=== PATIENT | female | born 1960 | race Caucasian/White ===

== ENCOUNTER 2017-01-06 06:56 | Observation (INO) | payer OTHER ==
[2017-01-06] MEDS ORDERED: NS 1,000 ML IV ONE (06:57)
--- NOTE | 2017-01-06 07:39 | CPEKG ---
Heart Rate: 69 RR Interval: 870 P-R Interval: 156 QRSD Interval: 82 QT Interval: 404 QTC Interval: 433 P [place]: 62 QRS [place]: 16 T Wave [place]: 46 EKG Severity - OTHERWISE NORMAL ECG - EKG Impression: SINUS RHYTHM EKG Impression: LOW VOLTAGE IN FRONTAL LEADS Electronically Signed By: Mervin Hamm 06-Jan-2017 09:09:37
[2017-01-06] MEDS ORDERED: SEVOFLURANE 250 ML BOTTLE IH ONE (07:44)
[2017-01-06] MEDS ORDERED: BUPIVACAINE 0.5% 30 ML SDV ONE (08:04)
[2017-01-06] MEDS ORDERED: HEPARIN 10,000 UNIT/10 ML MDV ONE (08:04)
[2017-01-06] MEDS ORDERED: LIDOCAINE 1% 300 MG/30 ML SDV ONE (08:04)
[2017-01-06] MEDS ORDERED: ISOPROTERENOL HCL/D5W 0.2 MG/50 ML BAG IV ONE (08:05)
[2017-01-06 08:10] LABS: % IMMATURE GRANULYOCYTES 0.3 % (0.0-1.1); ABSOLUTE IMMATURE GRANULOCYTES 0.02 10^3/uL (0.00-0.10); ADD DIFF? NO; ADD MORPH? NO; ADD SCAN? NO; ATYPICAL LYMPHOCYTE FLAG 0 (0-99); FRAGMENT RBC FLAG 0 (0-99); HEMATOCRIT 41.2 % (38.0-47.0); HEMOGLOBIN 13.7 g/dL (12.6-16.3); LEFT SHIFT FLG 0 (0-99); LIPEMIA HEMOLYSIS FLAG 80 (0-99); MEAN CELL HEMOGLOBIN 30.4 pg (27.9-34.1); MEAN CELL HEMOGLOBIN CONCENTR. 33.3 g/dL (32.4-36.7); MEAN CELL VOLUME 91.4 fL (81.5-99.8); MEAN PLATELET VOLUME 10.4 fL (8.7-11.7); PLATELET CLUMPS FLAG 10 (0-99); PLATELET COUNT 239 10^3/uL (150-400); RED BLOOD CELL COUNT 4.51 10^6/uL (4.18-5.33); RED CELL DISTRIBUTION WIDTH 13.2 % (11.5-15.2)
[2017-01-06 08:19] LABS: INR 0.96 (0.83-1.16); PROTIME(PATIENT) 12.7 SEC (12.0-15.0)
[2017-01-06 08:20] LABS: APTT 28.2 SEC (23.0-38.0)
[2017-01-06] MEDS ORDERED: MIDAZOLAM 2 MG/2 ML VIAL IVP ONE (08:20)
--- NOTE | 2017-01-06 08:20 | PDANEPAE ---
ANE History of Present Illness 56 year old female presents for SVT ablation. ANE Past Medical History - Cardiovascular History Hx Hypertension: No Hx Arrhythmias: Yes Hx Chest Pain: No Hx Coronary Artery / Peripheral Vascular Disease: No Hx CHF / Valvular Disease: No Hx Palpitations: Yes Cardiovascular History Comment: History of SVT and palpitations - Pulmonary History Hx COPD: No Hx Asthma/Reactive Airway Disease: No Hx Recent Upper Respiratory Infection: No Hx Oxygen in Use at Home: No Hx Sleep Apnea: No - Neurologic History Hx Cerebrovascular Accident: No Hx Seizures: No Hx Dementia: No - Endocrine History Hx Diabetes: No Hypothyroid: No Hyperthyroid: No Obesity: no - Renal History Hx Renal Disorders: No - Liver History Hx Hepatic Disorders: No - Neurological & Psychiatric Hx Hx Neurological and Psychiatric Disorders: No - Cancer History Hx Cancer: No - GI History GERD: mild - Chronic Pain History Chronic Pain: No ANE Review of Systems Review of systems is: negative Review of Systems: - Exercise capacity Exercise capacity: >=4 METS - Systems Cardiac: Reports: palpitations ANE Patient History - Allergies Allergies/Adverse Reactions: No Known Allergies Allergy (Unverified 01/06/17 06:25) - Home Medications Home medications: home medication list seen and reviewed Home Medications: Diltiazem HCl [Cartia Xt] 120 mg PO DAILY 01/06/17 [Last Taken 01/01/17] Estrogel 1.25g Gel Pump 1 bhavana TP Q3D 01/06/17 [Last Taken 01/04/17] Polyethylene Glycol 3350 [Miralax 17 gm (*)] 17 gm PO DAILY PRN 01/06/17 [Last Taken 01/05/17 21:00] Ranitidine HCl [Zantac] 300 mg PO HS 01/06/17 [Last Taken 01/05/17] - NPO status NPO Status: no food or drink >8 hours - Anes Hx Hx Anesthesia Complications (with details): No prior general anesthetics. Patient has had conscious sedation for colonoscopy and epidural for vaginal delivery. - Smoking Hx Smoking Status: Never smoked Marijuana use: Yes - Alcohol Use Alcohol Use: Occasionally - Family Anes Hx Family Anes Hx: neg - N/A ANE Labs/Vital Signs - Labs Result Diagrams: 01/06/17 08:00 01/06/17 08:00 - Vital Signs Vital Signs: reviewed preoperatively; see RN documention for details Height: 165 cm Weight: 68 kg ANE Physical Exam - Airway Neck exam: FROM Mallampati Score: Class 2 Mouth exam: normal dental/mouth exam - Pulmonary Pulmonary: no respiratory distress - Cardiovascular Cardiovascular: regular rate and rhythym - ASA Status ASA Status: II ANE Anesthesia Plan Anesthesia Plan: general endotracheal anesthesia Total IV Anesthesia: No
[2017-01-06] MEDS ORDERED: PROPOFOL 200 MG/20 ML VIAL ONE (08:26)
[2017-01-06] MEDS ORDERED: fentaNYL 100 MCG/2 ML INJ ONE (08:26)
[2017-01-06 08:27] LABS: ANION GAP 13 mEq/L (8-16); CALCIUM 9.3 mg/dL (8.5-10.4); CARBON DIOXIDE 23 mEq/l (22-31); CHLORIDE 105 mEq/L (97-110); CREATININE 0.7 mg/dL (0.6-1.0); GLOMERULAR FILTRATION RATE > 60; GLUCOSE 98 mg/dL (70-100); MAGNESIUM 1.8 mg/dL (1.6-2.3); POTASSIUM 4.2 mEq/L (3.5-5.2); SODIUM 141 mEq/L (134-144)
[2017-01-06] MEDS ORDERED: ROCURONIUM 50 MG/5 ML VIAL ONE ×2 (08:27→09:40)
[2017-01-06] MEDS ORDERED: DEXAMETHASONE 4 MG/ML VIAL ONE (08:33)
[2017-01-06] MEDS ORDERED: PHENYLEPHRINE HCL 100 MCG/ML SYR ONE (08:33)
[2017-01-06] MEDS ORDERED: ONDANSETRON 4 MG/2 ML VIAL ONE (08:33)
--- NOTE | 2017-01-06 09:08 | PDHPUP ---
History & Physical Update H&P update statement: This history and physical update is based on an assessment of the patient which was completed after admission or registration (within 24 hours), but prior to the surgery/procedure. H&P update: H&P reviewed & patient examined, no change in patient's condition since H&P completed
[2017-01-06] MEDS ORDERED: SUGAMMADEX SODIUM 200 MG/2 ML VIAL IVP ONE (10:05)
[2017-01-06] MEDS ORDERED: ONDANSETRON 4 MG/2 ML VIAL IVP PRN (10:06)
[2017-01-06] MEDS ORDERED: fentaNYL 100 MCG/2 ML INJ IVP PRN (10:06)
[2017-01-06] MEDS ORDERED: NALOXONE HCL 0.4 MG/ML INJ IVP PRN (10:06)
[2017-01-06] MEDS ORDERED: LR 500 ML IV PRN (10:06)
[2017-01-06] MEDS ORDERED: ACETAMINOPHEN 325 MG TAB PO PRN (10:37)
--- NOTE | 2017-01-06 10:37 | EPPROC ---
Electrophysiology Procedure Note: PROCEDURES PERFORMED: 32266-43 EP evaluation with RA/RV/LA pace/record, with arrhythmia induction 00239-11 EP evaluation with RA/RV pace record, insert/reposition catheter, with arrhythmia induction 28598 Intracardiac catheter ablation, SVT arrhythmogenic focus 61688 3D mapping Fluoroscopy INDICATION: Recurrent SVT PROCEDURE: Catheters & Anesthesia: The patient arrived in the Electrophysiology Laboratory in the fasting state. The right clavicular region, right groin, and left groin area were prepped and draped in the usual sterile manner. Anesthesiologist Dr. Mau Bryan administered general anesthesia. Appropriate non-invasive blood pressure, pulse oximetry and end-tidal CO2 monitoring was established. All catheters were placed percutaneously using the modified Seldinger technique , and advanced into position under fluoroscopic guidance. One #6 Greek hexapolar non-deflectable electrode catheter was inserted into the right atrial appendage via the left femoral vein (2mm spacing; except the proximal ring which was 25cm from the tip used for unipolar recordings). One #7 Greek deflectable octapolar electrode catheter was advanced to the His-bundle position via the left femoral vein (2mm spacing). One #7 Greek deflectable quadrapolar catheter was advanced to the anteroseptal right ventricle via the right femoral vein. One #7 Greek deflectable catheter with 10 pairs of electrodes was placed via the right femoral vein into the coronary sinus. Heparin was given to keep ACT > 200 s. Programmed stimulation was performed from the right atrium, right ventricle and coronary sinus (left atrium). Parahisian pacing demonstrated constant H-A interval with changing V-A intervals and stimulus-A intervals during capture and loss of capture of proximal RBB proving retrograde conduction over AV node. AVNRT was induced easily during infusion of isoproterenol 2 mcg/min. Ventricular extrastimuli delivered during tachycardia without altering antegrade His bundle activation did not advance next atrial potential, indicating that the tachycardia was not utilizing an accessory pathway for retrograde conduction. VA interval was -10 ms. Post entrainment of the tachycardia from the ventricle, there was VAHV response. Mapping of the right atrium and coronary sinus during AVNRT identified earliest atrial activation above the tendon of Simone at a level slightly posterior to the level of the His bundle, consistent with retrograde conduction over the fast AV avelino pathway. A #8 Greek deflectable quadrapolar electrode catheter (2mm-5mm-2mm spacing) with 4 mm tip electrode and sensor for the 3D mapping Carto system was advanced to the right atrium. 3 D mapping of the inter-atrial septum and coronary sinus was performed and location of the AV node was marked. A SL2 sheath was used. RF applications were delivered to the region between the tricuspid annulus and the coronary sinus ostium, at the level of the upper edge of the coronary sinus ostium. Radiofrequency applications were also delivered along the roof of the proximal coronary sinus. Junctional rhythm occurred during all of the RF applications. Programmed stimulation was continued post ablation at baseline and during graded doses of isoproterenol upto 4mcg/min. Sustained AVNRT was not inducible. There were single echo beats. The catheters were removed. The long sheath was changed to a short 9 Fr sheath. The patient was transferred to the cardiovascular holding area in stable condition. Vascular access sheaths were removed in the holding area. There were no apparent complications. Results: A. Spontaneous Intervals: Pre ablation SCL 720 ms AH 65 ms HV 40 ms Post ablation SCL 680 ms AH 65 ms HV 40 ms B. Antegrade AV avelino function (decremental pacing) Pre ablation FPERP 270 ms then SVT Post ablation FPERP 290 ms WBB CL 280 ms C. Retrograde AV avelino function (decremental pacing) Pre ablation FPERP 240 ms WBB CL 230 ms D. Arrhythmias: Sustained slow/fast AVNRT Cycle length 280 ms, AH interval 240 ms, MARTIN interval 40 ms VA interval -10 ms CONCLUSIONS 1. AV avelino reentrant tachycardia using the slow AV avelino pathway for antegrade conduction and the fast AV avelino pathway for retrograde conduction. ( Slow/fast AVNRT). 2. Successful ablation of the slow AV avelino pathway with elimination of 1:1 antegrade conduction over the slow AV avelino pathway, all retrograde conduction over the slow AV avelino pathway and the inducibility of AVNRT. 3. No complications. Patient Problems: Problems Problem Status Onset Supraventricular tachycardia Acute
[2017-01-06] MEDS ORDERED: POLYETHYLENE GLYCOL 3350 17 GM PKT PO PRN (10:39)
[2017-01-06] MEDS ORDERED: ATROPINE SULFATE 1 MG/10 ML SYR ONE (10:55)
--- NOTE | 2017-01-06 12:29 | CPEKG ---
Heart Rate: 68 RR Interval: 882 P-R Interval: 156 QRSD Interval: 76 QT Interval: 400 QTC Interval: 426 P [place]: 66 QRS [place]: 23 T Wave [place]: 54 EKG Severity - OTHERWISE NORMAL ECG - EKG Impression: SINUS RHYTHM EKG Impression: LOW VOLTAGE IN FRONTAL LEADS Electronically Signed By: Mervin Hamm 06-Jan-2017 13:53:16
--- NOTE | 2017-01-06 14:35 | POSTANESTH ---
Post Anesthetic Evaluation Cardiovascular Status: Similar to Pre-Op Cond Respiratory Status: Normal, Stable, Similar to Pre-op Cond. Level of Consciousness/Mental Status: Can Participate in Eval Pain Control: Adequate, Prn Tx Ordered Nausea/Vomiting Control: Adequate, Prn Tx Ordered Complications Possibly Related to Anesthesia: None Noted
[2017-01-06] MEDS ORDERED: Ranitidine Hcl [Zantac] 300 MG PO SCH (21:00)
[2017-01-06] MEDS ORDERED: FAMOTIDINE 20 MG TAB PO SCH (21:00)
[2017-01-07 05:36] LABS: % IMMATURE GRANULYOCYTES 0.3 % (0.0-1.1); ABSOLUTE IMMATURE GRANULOCYTES 0.04 10^3/uL (0.00-0.10); ADD DIFF? NO; ADD MORPH? NO; ADD SCAN? NO; ATYPICAL LYMPHOCYTE FLAG 0 (0-99); FRAGMENT RBC FLAG 0 (0-99); HEMATOCRIT 38.2 % (38.0-47.0); HEMOGLOBIN 12.5 g/dL (12.6-16.3); LEFT SHIFT FLG 0 (0-99); LIPEMIA HEMOLYSIS FLAG 80 (0-99); MEAN CELL HEMOGLOBIN 30.3 pg (27.9-34.1); MEAN CELL HEMOGLOBIN CONCENTR. 32.7 g/dL (32.4-36.7); MEAN CELL VOLUME 92.7 fL (81.5-99.8); MEAN PLATELET VOLUME 10.8 fL (8.7-11.7); PLATELET CLUMPS FLAG 10 (0-99); PLATELET COUNT 260 10^3/uL (150-400); RED BLOOD CELL COUNT 4.12 10^6/uL (4.18-5.33); RED CELL DISTRIBUTION WIDTH 13.3 % (11.5-15.2)
[2017-01-07 05:44] LABS: ANION GAP 8 mEq/L (8-16); CALCIUM 9.1 mg/dL (8.5-10.4); CARBON DIOXIDE 26 mEq/l (22-31); CHLORIDE 104 mEq/L (97-110); CREATININE 0.8 mg/dL (0.6-1.0); GLOMERULAR FILTRATION RATE > 60; GLUCOSE 97 mg/dL (70-100); POTASSIUM 4.6 mEq/L (3.5-5.2); SODIUM 138 mEq/L (134-144)
[2017-01-07 05:50] LABS: TROPONIN I 0.103 ng/mL (0.000-0.034)
--- NOTE | 2017-01-07 08:29 | CPEKG ---
Heart Rate: 77 RR Interval: 779 P-R Interval: 152 QRSD Interval: 80 QT Interval: 384 QTC Interval: 435 P [place]: 57 QRS [place]: 15 T Wave [place]: 40 EKG Severity - NORMAL ECG - EKG Impression: SINUS RHYTHM Electronically Signed By: Bernie Perdomo 07-Jan-2017 09:59:51
[2017-01-07 08:39] VITALS: BP 110/68; PULSE 67; RESP 15; TEMP 98.3; O2SAT 97
[2017-01-07] MEDS ORDERED: ASPIRIN 81 MG CHEWABLE TAB PO SCH (09:00)
--- NOTE | 2017-01-07 09:23 | ECHO ---
[email or web address] [address] [address] Main: [phone] Fax: Transthoracic Echocardiogram Name: ROBBIN TORRES MR#: [id number] Study Date: 01/07/2017 Study Time: 07:34 AM Date of : 1960 Age: 56 year(s) Height: 165.1 cm (65 in.) Weight: 67.59 kg (149 lb.) BSA: 1.75 m2 Gender: Female Examination: Echo Indication: F/U post EP study Image Quality: Contrast: Requested by: Mervin Hamm Heart Rate: Rhythm: BP: 113 mmHg/73 mmHg Procedure Staff Ordering Physician: RHEA It Risk Advisor: Sherine Norris Reading Physician: Troy Mckinney Conclusions: ? Normal size left ventricle. ? The EF is 65-70%. ? Normal size right ventricle. ? The left atrium is normal in size. ? The right atrium is normal in size. ? The mitral valve is normal in appearance. ? Trivial mitral valve regurgitation. ? The aortic valve is tri-leaflet and functions normally. ? The tricuspid valve appears normal. ? No pericardial effusion. ? There is pericardial fat. Measurements: Chambers Valvular Assessment AV/MV Valvular Assessment TV/PV Normal Normal Normal Name Value Range Name Value Range Name Value Range Ao Mandie (MM): 2.9 cm (2.2 cm-3.7 AV meanP mmHg ( - ) cm) MV E Vmax: 0.99 cm/s ( - ) IVSd (2D): 0.5 cm (0.6 cm-1.1 MV A Vmax: 0.68 cm/s ( - ) cm) MV E/A: 1.46 ( - ) LVDd (2D): 4.3 cm (3.9 cm-5.3 cm) LVDs (2D): 2.6 cm (2.1 cm-4 cm) LVPWd (2D): 0.6 cm ( - ) LVEF (2D): 70 (>=54 %) Continued Measurements: Chambers Valvular Assessment AV/MV Patient: ROBBIN TORRES Study Date: 01/07/2017 Page 1 of 2 07:34 AM Name Value Name Value LA Area: 14.1 cm? MV E/E' Septal: 13.20 LA Volume: 37 ml LA Volume Index: 21.1 ml/m? Findings: Left Ventricle: Normal size left ventricle. The EF is 65-70%. Right Ventricle: Normal size right ventricle. Left Atrium: The left atrium is normal in size. Right Atrium: The right atrium is normal in size. Mitral Valve: The mitral valve is normal in appearance. Trivial mitral valve regurgitation. Aortic Valve: The aortic valve is tri-leaflet and functions normally. Tricuspid Valve: The tricuspid valve appears normal. Mild tricuspid regurgitation is present. Pulmonic Valve: The pulmonic valve is normal in appearance and function. Trivial pulmonic valve regurgitation. Great Vessels: Pericardium: No pericardial effusion. There is pericardial fat. (No Signature Object) Patient: ROBBIN TORRES Study Date: 01/07/2017 Page 2 of 2 07:34 AM D:_[id number]
--- NOTE | 2017-01-07 14:03 | GDS ---
[f rep st] DISCHARGE SUMMARY DISCHARGE DIAGNOSES: Supraventricular tachycardia, status post AVNRT ablation. BRIEF HISTORY: Dr. Colorado referred the patient to Dr. Hamm for SVT treatment. She has a 30-year histor y of palpitations. These have been increasing recently. SVT at a rate of 230 beats per minute was d ocumented in the ER in June. She was taking Cardizem, however, experiencing side effects of this me dication and opted for an EP study and ablation, if indicated. HOSPITAL COURSE: Dr. Hamm performed ablation of the slow AV avelino pathway. There was no inducible AV NRT post ablation. Guerda did well overnight. She denies any chest pain, shortness of breath, pain in her groin or her legs. TESTING DONE: EKG demonstrates sinus rhythm without ST or T-wave changes. Echocardiogram demonstrat es normal LV function with an ejection fraction of 65% to 70%. There is no pericardial effusion. LABORATORY DATA: WBC is 13.2, hemoglobin 12.5, hematocrit 38.2, platelets 260,000. Sodium is 138, p otassium 4.6, chloride 104, bicarb 26, BUN 14. Creatinine is 0.8. Glucose is 97. CK 35. CK-MB is 0.90. Troponin is 0.103, which is elevated and to be expected post ablation. PHYSICAL EXAM: VITAL SIGNS: Blood pressure is 113/73. Pulse is 77, respirations 19, temperature 36 .6. O2 saturation on room air is 95%. GENERAL: She is alert and oriented, sitting up in bed, in no acute distress. CARDIAC: Regular rate and rhythm, without a murmur, rub, or gallop. LUNGS: Clear to auscultation. ABDOMEN: Soft and nontender. Groin sites are without bleeding. There is no carrie rm and no ecchymosis. EXTREMITIES: Bilateral +2 pedal pulses. No lower extremity edema or discol oration. DISCHARGE INSTRUCTIONS: Post-ablation activity restrictions were reviewed verbally with the patient and her , and she did receive written instructions also. She understands to do no heavy lifti ng or vigorous activity for 1 week. She understands to notify us or seek medical attention if any pa in or swelling in her legs or any swelling at her groin site. DISCHARGE MEDICATIONS: Please see discharge medication reconciliation. Of note, she will take 81 mg enteric-coated aspirin for 6 weeks post ablation. FOLLOWUP: She has a followup with Dr. Hamm on February 18, at 2:30. /[id number]/MODL
--- NOTE | 2017-01-08 09:25 | ASDISCHSUM ---
Discharge Information Plan Status:Home with No Needs Medically Cleared to Leave:01/07/2017 Discharge Date:01/07/2017 09:53 AM CM D/C Disposition:Home, Routine, Self-Care ADT D/C Disposition:Home, Routine, Self-Care Projected Discharge Date:01/07/2017 12:00 AM Transportation at D/C: Discharge Delay Reason: Follow-Up Date:01/07/2017 12:00 AM Discharge Slot: Final Diagnosis: Placement Information Patient Contact Information Contact Name:AARON Relationship: Address:[address] City:[place] Alternate Phone: [facility] [address]/Zip Code:[place] [address] Email: Financial Information Financial Class:HMO and PPO Plans Primary Plan Desc:[facility] Primary Plan Number:[id number] Secondary Plan Desc: Secondary Plan Number: Assessment Information Intervention Information
--- NOTE | 2017-01-09 08:30 | CPEKG ---
Heart Rate: 74 RR Interval: 811 P-R Interval: 160 QRSD Interval: 84 QT Interval: 404 QTC Interval: 449 P [place]: 60 QRS [place]: 9 T Wave [place]: 46 EKG Severity - NORMAL ECG - EKG Impression: SINUS RHYTHM Electronically Signed By: Mervin Hamm 09-Jan-2017 11:05:22
== END 2017-01-07 09:53 | disposition home or self-care (01) ==
LOC: FCATH 06:56 → F2W 10:37
PROVIDERS: ADMIT Internal Medicine Cardiovascular Disease; ATTEND Internal Medicine Cardiovascular Disease
DX: I47.1 Supraventricular tachycardia (principal)
CPT/HCPCS: 93005; 93306; 93613; 93621; 93623; 93653; C1730; C1732; G0378; C1731; C1893; J0461; J1100; J1644; J2250; J2370; J2405; J2704; J3010